=== PATIENT | male | born 2000 | race Caucasian/White ===

== ENCOUNTER 2019-01-11 16:00 | Emergency (ER) | payer BC, OTHER ==
[~2019-01-11] VITALS: Ht 185.4 cm; Wt 95.3 kg
--- NOTE | 2019-01-11 16:13 | ED Neurological Problem ---
General Stated Complaint: SEIZURE Source: patient, other Exam Limitations: no limitations (friends) History of Present Illness Date Seen by Provider: Jan 11, 2019 Time Seen by Provider: 16:08 Initial Comments This is a 18-year-old white male presents after having a seizure. Patient was observed to have bitten his tongue at the time of the seizure. The patient relates that he's had a dozen similar episodes not treated with anticonvulsants in the past. Patient has had a partial workup that includes a normal MRI. The patient's postictal state according to bystanders lasted approximately 30 minutes. Allergies and Home Medications Allergies Coded Allergies: No Known Drug Allergies (Unverified , 01/11/19) Patient Home Medication List Home Medication List Reviewed: Yes Review of Systems Review of Systems Constitutional: No chills, No malaise, No weakness Eyes: Denies Blurred Vision Ears, Nose, Mouth, Throat: denies ear pain Respiratory: No cough Cardiovascular: No chest pain, No palpitations Gastrointestinal: No abdominal pain, No melena, No nausea, No vomiting Genitourinary: No decreased output, No dysuria, No frequency Musculoskeletal: No back pain Skin: No rash Psychiatric/Neurological: No Symptoms Reported Endocrine: No Symptoms Reported Hematologic/Lymphatic: No Symptoms Reported Past Zgecaup-Ygfwgb-Rzybxh Hx Past Med/Social Hx: Reviewed Nursing Past Med/Soc Hx Physical Exam Vital Signs Capillary Refill : Height, Weight, BMI Height: '" Weight: lbs. oz. kg; BMI Method: General Appearance: WD/WN, no apparent distress HEENT: other (bitten tongue) Neck: full range of motion Respiratory: lungs clear, normal breath sounds Cardiovascular: regular rate, rhythm Gastrointestinal: normal bowel sounds, soft Back: normal inspection Extremities: normal range of motion, non-tender, normal inspection Neurologic/Psychiatric: no motor/sensory deficits, alert, normal mood/affect, oriented x 3 Crainal Nerves: normal hearing, normal speech Motor/Sensory: no motor deficit, no sensory deficit Skin: normal color, warm/dry Progress/Results/Core Measures Results/Orders Lab Results Laboratory Tests Test 01/11/19 16:14 01/11/19 16:37 Range/Units White Blood Count 9.3 4.3-11.0 10^3/uL Red Blood Count 5.70 4.35-5.85 10^6/uL Hemoglobin 16.0 13.3-17.7 G/DL Hematocrit 46 40-54 % Mean Corpuscular Volume 81 80-99 FL Mean Corpuscular Hemoglobin 28 25-34 PG Mean Corpuscular Hemoglobin Concent 35 32-36 G/DL Red Cell Distribution Width 14.2 10.0-14.5 % Platelet Count 324 130-400 10^3/uL Mean Platelet Volume 9.8 7.4-10.4 FL Neutrophils (%) (Auto) 68 42-75 % Lymphocytes (%) (Auto) 21 12-44 % Monocytes (%) (Auto) 7 0-12 % Eosinophils (%) (Auto) 4 0-10 % Basophils (%) (Auto) 1 0-10 % Neutrophils # (Auto) 6.3 1.8-7.8 X 10^3 Lymphocytes # (Auto) 1.9 1.0-4.0 X 10^3 Monocytes # (Auto) 0.6 0.0-1.0 X 10^3 Eosinophils # (Auto) 0.4 H 0.0-0.3 10^3/uL Basophils # (Auto) 0.1 0.0-0.1 10^3/uL Sodium Level 139 135-145 MMOL/L Potassium Level 4.2 3.6-5.0 MMOL/L Chloride Level 100 98-107 MMOL/L Carbon Dioxide Level 26 21-32 MMOL/L Anion Gap 13 5-14 MMOL/L Blood Urea Nitrogen 6 L 7-18 MG/DL Creatinine 1.00 0.60-1.30 MG/DL Estimat Glomerular Filtration Rate > 60 BUN/Creatinine Ratio 6 Glucose Level 99 70-105 MG/DL Calcium Level 9.8 8.5-10.1 MG/DL Corrected Calcium 8.5-10.1 MG/DL Total Bilirubin 0.5 0.1-1.0 MG/DL Aspartate Amino Transf (AST/SGOT) 29 5-34 U/L Alanine Aminotransferase (ALT/SGPT) 42 0-55 U/L Alkaline Phosphatase 99 40-136 U/L Total Protein 7.7 6.4-8.2 GM/DL Albumin 4.7 H 3.2-4.5 GM/DL Urine Color YELLOW Urine Clarity CLEAR Urine pH 5.5 5-9 Urine Specific Trout 1.025 H 1.016-1.022 Urine Protein NEGATIVE NEGATIVE Urine Glucose (UA) NEGATIVE NEGATIVE Urine Ketones NEGATIVE NEGATIVE Urine Nitrite NEGATIVE NEGATIVE Urine Bilirubin NEGATIVE NEGATIVE Urine Urobilinogen 0.2 NORMAL MG/DL Urine Leukocyte Esterase NEGATIVE NEGATIVE Urine RBC (Auto) NEGATIVE NEGATIVE Urine RBC NONE /HPF Urine WBC NONE /HPF Urine Squamous Epithelial Cells NONE /HPF Urine Crystals PRESENT H /LPF Urine Amorphous Sediment RARE ISAIAS URATES H /LPF Urine Bacteria NEGATIVE /HPF Urine Casts NONE /LPF Urine Mucus SMALL H /LPF Urine Culture Indicated NO Urine Opiates Screen NEGATIVE NEGATIVE Urine Oxycodone Screen NEGATIVE NEGATIVE Urine Methadone Screen NEGATIVE NEGATIVE Urine Propoxyphene Screen NEGATIVE NEGATIVE Urine Barbiturates Screen NEGATIVE NEGATIVE Ur Tricyclic Antidepressants Screen NEGATIVE NEGATIVE Urine Phencyclidine Screen NEGATIVE NEGATIVE Urine Amphetamines Screen NEGATIVE NEGATIVE Urine Methamphetamines Screen NEGATIVE NEGATIVE Urine Benzodiazepines Screen NEGATIVE NEGATIVE Urine Cocaine Screen NEGATIVE NEGATIVE Urine Cannabinoids Screen NEGATIVE NEGATIVE My Orders Orders - BLUE CURIEL MD Ct Head Wo (01/11/19 16:13) Cbc With Automated Diff (01/11/19 16:13) Comprehensive Metabolic Panel (01/11/19 16:13) Ua Culture If Indicated (01/11/19 16:13) Drug Screen Stat (Urine) (01/11/19 16:13) Ekg Tracing (01/11/19 16:13) Continuous Ekg Monitoring (01/11/19 16:13) Chest 1 View Ap/Pa Only (01/11/19 16:13) Ed Iv/Invasive Line Start (01/11/19 16:36) Ondansetron Injection (Zofran Injectio (01/11/19 16:45) Phenytoin Capsule (Dilantin Capsule) (01/11/19 17:00) Phenytoin Capsule (Dilantin Capsule) (01/11/19 17:00) Phenytoin Capsule (Dilantin Capsule) (01/11/19 17:00) Medications Given in ED Current Medications Medications Dose Ordered Sig/Brian Route Start Time Stop Time Status Last Admin Dose Admin Ondansetron HCl 4 mg ONCE ONCE IVP 01/11/19 16:45 01/11/19 16:46 DC 01/11/19 16:57 4 MG Phenytoin Sodium 400 mg ONCE ONCE PO 01/11/19 17:00 01/11/19 17:01 DC 01/11/19 16:58 400 MG Progress Progress Note : Time: 16:12 Progress Note It seems clear the patient has an untreated seizure disorder. The patient is not a drug or alcohol abuser. The patient has no established physician. While I worked him up in the Emergency department I loaded him with a gram of Dilantin orally. I will have him follow-up with Dr. Aponte at [facility] tomorrow. Initial ECG Impression Date: Jan 11, 2019 Departure Impression Primary Impression: Seizure Disposition: 01 HOME, SELF-CARE Condition: Improved Departure-Patient Inst. Decision time for Depature: 17:14 Referrals: [facility] [place]ructions: Epilepsy in Adults Add. Discharge Instructions: Follow-up with Dr. Aponte [facility] tomorrow. Make certain that you get a gram loading dose of Dilantin tonight. Take 300 mg of Dilantin a day starting tomorrow morning. Return if any problems or questions. BLUE CURIEL MD Jan 11, 2019 16:13
[2019-01-11] MEDS ORDERED: PHENYTOIN INJECTION 1,000 MG in NS (IVPB) 50 ML, 0.2 MICRON FILTER IV SET 1 EACH IV ONE ×3 (16:15)
[2019-01-11 16:23] LABS: WHITE BLOOD COUNT 9.3 10^3/uL (4.3-11.0)
[2019-01-11 16:24] LABS: HEMATOCRIT 46 % (40-54); LYMPHOCYTES % (AUTO) 21 % (12-44); MEAN CORPUSCULAR HEMOGLOBIN 28 PG (25-34); MEAN CORPUSCULAR HGB CONC 35 G/DL (32-36); MEAN CORPUSCULAR VOLUME 81 FL (80-99); MEAN PLATELET VOLUME 9.8 FL (7.4-10.4); NEUTROPHILS % (AUTO) 68 % (42-75); PLATELET COUNT 324 10^3/uL (130-400); RED CELL DISTRIBUTION WIDTH 14.2 % (10.0-14.5)
[2019-01-11 16:25] LABS: BASOPHILS # (AUTO) 0.1 10^3/uL (0.0-0.1); BASOPHILS % (AUTO) 1 % (0-10); EOSINOPHILS # (AUTO) 0.4 10^3/uL (0.0-0.3); EOSINOPHILS % (AUTO) 4 % (0-10); LYMPHOCYTES # (AUTO) 1.9 X 10^3 (1.0-4.0); MONOCYTES # (AUTO) 0.6 X 10^3 (0.0-1.0); MONOCYTES % (AUTO) 7 % (0-12); NEUTROPHILS # (AUTO) 6.3 X 10^3 (1.8-7.8)
[2019-01-11 16:45] LABS: CHLORIDE 100 MMOL/L (98-107); POTASSIUM 4.2 MMOL/L (3.6-5.0); SODIUM 139 MMOL/L (135-145)
[2019-01-11] MEDS ORDERED: ONDANSETRON 4 MG/2 ML (SDV) Z0FRAN IVP ONE (16:45)
[2019-01-11 16:46] LABS: ALANINE AMINOTRANSFERASE 42 U/L (0-55); ALBUMIN 4.7 GM/DL (3.2-4.5); ALKALINE PHOSPHATASE 99 U/L (40-136); BILIRUBIN,TOTAL 0.5 MG/DL (0.1-1.0); BUN/CREATININE RATIO 6; CALCIUM 9.8 MG/DL (8.5-10.1); CARBON DIOXIDE 26 MMOL/L (21-32); GFR ESTIMATED > 60; GLUCOSE 99 MG/DL (70-105); TOTAL PROTEIN 7.7 GM/DL (6.4-8.2)
[2019-01-11 16:59] LABS: CLARITY,URINE CLEAR; COLOR,URINE YELLOW; PH,URINE 5.5 (5-9)
[2019-01-11 17:00] LABS: AMORPHOUS SEDIMENT,UR RARE AMOR URATES /LPF; BACTERIA,URINE NEGATIVE /HPF; BILIRUBIN,URINE NEGATIVE (NEGATIVE); GLUCOSE, URINE (UA) NEGATIVE (NEGATIVE); KETONES,URINE NEGATIVE (NEGATIVE); LEUKOCYTE ESTERASE ,URINE NEGATIVE (NEGATIVE); NITRITE,URINE NEGATIVE (NEGATIVE); PROTEIN,URINE NEGATIVE (NEGATIVE); UROBILINOGEN,URINE 0.2 MG/DL (NORMAL)
[2019-01-11] MEDS ORDERED: PHENYTOIN 100 MG (DILANTIN) CAP PO ONE ×3 (17:00)
[2019-01-11 17:02] LABS: AMPHETAMINE SCREEN, URINE NEGATIVE (NEGATIVE); BARBITURATE SCREEN URINE NEGATIVE (NEGATIVE); BENZODIAZEPINES SCREEN URINE NEGATIVE (NEGATIVE); CANNABINOID SCREEN, URINE NEGATIVE (NEGATIVE); COCAINE SCREEN URINE NEGATIVE (NEGATIVE); METHADONE STAT NEGATIVE (NEGATIVE); METHAMPHETAMINE SCREEN URINE S NEGATIVE (NEGATIVE); OPIATE SCREEN URINE NEGATIVE (NEGATIVE); OXYCODONE STAT NEGATIVE (NEGATIVE); PROPOXYPHENE STAT NEGATIVE (NEGATIVE); TRICYCLIC ANTIDEPRESSANTS SCRE NEGATIVE (NEGATIVE)
--- NOTE | 2019-01-11 17:31 | Diagnostic Imaging Report ---
PROCEDURE: CT head without contrast. TECHNIQUE: Multiple contiguous axial images were obtained through the brain without the use of intravenous contrast. Auto Exposure Controls were utilized during the CT exam to meet ALARA standards for radiation dose reduction. INDICATION: Patient had a seizure today with previous seizures in the past for unknown reasons. COMPARISON STUDY: None. FINDINGS: Noncontrast CT scanning of the head demonstrates no mass effect, midline shift, hemorrhage, or extra-axial fluid collections. Hernandez-white matter differentiation is normal. The ventricles, cortical sulci, and basilar cisterns appear normal. Bone windows demonstrate minimal mucosal thickening in the posterior ethmoid air cell. IMPRESSION: 1. There are normal intracranial findings. 2. Mild right ethmoid sinusitis is present. Dictated by: Dictated on workstation # [id number]
--- NOTE | 2019-01-11 17:32 | Diagnostic Imaging Report ---
INDICATION: Seizures. FINDINGS: Frontal view of the chest demonstrates the lungs to be clear. The heart, mediastinum, pulmonary vascularity, and the visualized bony thorax are normal. IMPRESSION: Normal chest. Dictated by: Dictated on workstation # [id number]
== END 2019-01-11 17:56 | disposition home or self-care (01) ==
LOC: ER FS 16:02
DX: R56.9 Unspecified convulsions (principal)
CPT/HCPCS: 36415; 70450; 71045; 80053; 80306; 81000; 85025; 93005; 96374

== ENCOUNTER 2019-03-07 13:24 | Emergency (ER) | payer BC, OTHER ==
[~2019-03-07] VITALS: Ht 185.4 cm; Wt 95.3 kg
--- NOTE | 2019-03-07 14:27 | ED Integumentary General ---
General Chief Complaint: Skin/Wound Problems Stated Complaint: RASH ON LEGS/ARMS Nursing Triage Note: Patient c/o red raised rash to bilateral upper/lower extremities and on torso. States that rash began this morning and c/o itching. Reports that he doesn't remember getting into anything that would make this rash appear. (RADHA LWOE) History of Present Illness Date Seen by Provider: Mar 07, 2019 Time Seen by Provider: 14:25 Initial Comments A 18 yo Male presents to the ER today complaining of a rash. He states that he had a rash similar to this during [employer] Training, and it was an allergic reaction. Patient stated that the rash appeared this morning on his arms, legs and chest. Patient also states that the insect bite river are due to bed bugs and does live with multiple dogs and cats. Patient experience intense pruritus and took some Benadryl which aided in relief. Patient is not experiencing any fevers or chills, chest pain, or shortness of breath. There is no swelling of the face or of the rash covered areas. The rash is multiple circular, erythematous, raised, and well demarcated. Some appear in groups while others are singular. (RADHA LOWE) Allergies and Home Medications Allergies Coded Allergies: No Known Drug Allergies (Unverified , 01/11/19) Patient Home Medication List Home Medication List Reviewed: Yes (RAJNI PONCE MD) Review of Systems Review of Systems Constitutional: No chills, No dizziness, No fever Respiratory: No short of breath Cardiovascular: No chest pain, No edema Gastrointestinal: no symptoms reported Skin: change in color, lesions (Erythrematous, non-pustular, annular lesion), rash, other (Multiple Insect Bite River.) Psychiatric/Neurological: Headache Endocrine: Denies Excessive Sweating, Denies Flushing (RDAHA LOWE) Past Jodeqzg-Stldxj-Yllbsr Hx Patient Social History 2nd Hand Smoke Exposure: No Recent Foreign Travel: No Contact w/Someone Who Travel: No Recent Infectious Disease Expo: No Recent Hopitalizations: No (RADHA LOWE) Seasonal Allergies Seasonal Allergies: No (RADHA LOWE) Past Medical History Surgeries: No Respiratory: No Cardiac: No Neurological: Yes Seizure Disorder Genitourinary: No Gastrointestinal: No Musculoskeletal: No Endocrine: No HEENT: No Cancer: No Psychosocial: No Integumentary: No Blood Disorders: No (RADHA LOWE [facility]) Physical Exam Vital Signs Vital Signs - First Documented 03/07/19 03/07/19 13:55 16:45 Temp 98.5 Pulse 80 Resp 18 B/P (MAP) 132/82 Pulse Ox 99 (RAJNI PONCE MD) Vital Signs Capillary Refill : (RADHA LOWE [facility]) General Appearance: WD/WN, no apparent distress Cardiovascular: normal peripheral pulses, regular rate, rhythm, no edema, no gallop, no JVD, no murmur Respiratory: chest non-tender, lungs clear, normal breath sounds, no respiratory distress, no accessory muscle use Skin: normal color, warm/dry, other (See HPI.) Skin Problem Location: generalized, upper extremities, lower extremities, other (Chest) Skin Problem Character: erythema, lesion, rash, other (Pruritic plaque) Lymphatic: no adenopathy (No discharge) Comments Multiple insect bite river and multiple pruritic, erythematous, plaque like lesions that are in clusters and singular. (RADHA LOWE [facility]) Progress/Results/Core Measures Results/Orders Vital Signs/I&O 03/07/19 03/07/19 13:55 16:45 Temp 98.5 98.5 Pulse 80 80 Resp 18 18 B/P (MAP) 132/82 Pulse Ox 99 (RAJNI PONCE MD) Departure Impression Primary Impression: Rash Disposition: 07 AGAINST MEDICAL ADVICE Condition: Against Medical Advice Departure-Patient Inst. Referrals: SCARLETT FELDMAN MD (PCP/Family) Primary Care Physician This patient was seen by the [employer] 3 student but did not want to wait for the attending physician. He left without being seen. (RAJNI PONCE MD) RADHA LOWE [facility] Mar 07, 2019 14:27 RAJNI PONCE MD Mar 11, 2019 21:39
--- NOTE | 2019-03-07 16:45 | NUR ---
Patient left AMA. Patients family member came to the desk complaining of the long wait time. This nurse had explained to patient and family prior that we had several critical patients that we needed to get shipped out of the ED. Patients family member stated, "We've been waiting for 4 hours. Thats ridiculous, we will just go up to [facility]." This RN explained to patient and family member risks associated with leaving the ED against medical advice. Patient and family member then proceeded to depart from the ED.
== END 2019-03-07 16:45 | disposition left against medical advice (07) ==
LOC: EDUNIT# 13:24 → ER FS 13:26
DX: L29.9 Pruritus, unspecified (principal); R21 Rash and other nonspecific skin eruption; G40.909 Epilepsy, unspecified, not intractable, without status epilepticus
CPT/HCPCS: 99282